=== PATIENT | female | born 1995 | race Two or more races ===

== ENCOUNTER 2025-05-11 08:31 | Outpatient (CLI) | payer BC ==
[2025-05-11 08:53] LABS: Hematocrit 44.0 % (36.0-46.0); Hemoglobin 14.8 g/dL (12.2-16.2); Mean Corpuscular Hemoglobin 29.7 pg (28.0-32.0); Mean Corpuscular Volume 88.2 fL (80.0-100.0); Nucleated Red Blood Cells % 0.0 %
[2025-05-11 09:17] LABS: Urine Protein, UAD Negative (Negative)
[2025-05-11 09:24] LABS: Alanine Aminotransferase 21 U/L (7-40); Albumin 4.6 g/dL (3.2-4.8); Alkaline Phosphatase 54 U/L (46-116); Anion Gap 9 (5-15); BUN/Creatinine Ratio 9.0 (10.0-20.0); Bilirubin, Total 0.8 mg/dL (0.2-1.0); Calcium 9.5 mg/dL (8.7-10.4); Carbon Dioxide 26 mmol/L (20-31); Chloride 105 mmol/L (98-107); Cholesterol 199 mg/dL (< 200); Glucose 89 mg/dL (74-106); HDL Cholesterol 48 mg/dL (40-59); Potassium 4.1 mmol/L (3.5-5.1); Sodium 140 mmol/L (136-145); Total Protein 7.1 g/dL (5.7-8.2); Triglycerides 115 mg/dL (< 150)
[2025-05-11 09:25] LABS: Blood Urea Nitrogen 8 mg/dL (9-23)
== END 2025-05-11 17:00 | disposition home or self-care (01) ==
LOC: LAB 08:31
PROVIDERS: ATTEND Nurse Practitioner Family
DX: I10 Essential (primary) hypertension (principal); Z00.01 Encounter for general adult medical examination with abnormal findings
CPT/HCPCS: 36415; 80053; 80061; 81001; 84443; 85025